=== PATIENT | male | born 1975 | race American Indian/Alaskan Native ===

== ENCOUNTER 2017-06-24 09:44 | Day surgery (SDC) | payer BC ==
[2017-06-17 13:16] VITALS: BMI 23.3
[~2017-06-24 09:44] MED LIST: Lactated Ringer's 1,000 ML IV SCH
[2017-06-24] MEDS ORDERED: Propofol 10 mg/ml Inj (20 ML) ONE (09:48)
[2017-06-24 10:14] VITALS: O2SAT 100
--- NOTE | 2017-06-24 10:26 | CP.SDSHP ---
Same Day Surgery H & P - History Proposed Procedure: colonoscopy Pre-Op Diagnosis: rectal bleeding - Allergies Allergies: Allergies No Known Allergies Allergy (Verified 06/17/17 13:17) - Physical Exam General Appearance: no acute distress Vital Signs: Vital Signs 06/24/17 10:13 Temperature 97.2 F L Pulse Rate 80 Respiratory 11 L Rate Blood Pressure 126/78 O2 Sat by Pulse 100 Oximetry Mental Status: Alert & Oriented x3 Neuro: WNL Heart: WNL Lungs: WNL GI: WNL - {Optional Preform as Required} Abdomen: WNL Rectal: WNL Integument: WNL PAD ASSEMBLER: WNL : WNL Ortho: WNL ENT: WNL - Impression Impression: rectal bleeding Pt. Evaluated Today:Candidate for Anesthesia & Procedure: Yes - Date & Time Date: 06/24/17 Time: 10:15 Short Stay Discharge - Short Stay Discharge Admitting Diagnosis/Reason for Visit: RECTAL BLEEDING K62.5 Disposition: HOME/ ROUTINE Referrals: Jazmine Gonzalez MD [Primary Care Provider] -
[2017-06-24 11:49] VITALS: BP 119/69; PULSE 73; RESP 16; TEMP 97.5
== END 2017-06-24 12:10 | disposition home or self-care (01) ==
LOC: ENDO 09:44
PROVIDERS: ATTEND Internal Medicine Gastroenterology
DX: K62.5 Hemorrhage of anus and rectum (principal); K64.8 Other hemorrhoids
CPT/HCPCS: 45378; J2001; J2704; J7040; J7120